=== PATIENT | female | born 1960 | race Caucasian/White ===

== ENCOUNTER 2017-01-04 15:23 | Emergency (ER) | payer MEDICARE, BC ==
[~2017-01-04] VITALS: Ht 160 cm; Wt 85.1 kg
[~2017-01-04 15:23] MED LIST: ALPR1TAB2 PO; ASPI-496 PO; DICL100G8 TP; FLUT16SP2 NS; LEVO125T PO; NITR0.4T8 SL; VITAMIN B12 SL; ZOLTAREN TP; [UNRECOGNIZED DRUG - OTHER] PO
[2017-01-04 15:38] VITALS: BP 117/73
== END 2017-01-04 16:34 | disposition home or self-care (01) ==
LOC: ED 16:29
DX: G89.11 Acute pain due to trauma (principal); M54.42 Lumbago with sciatica, left side; M54.41 Lumbago with sciatica, right side; M25.572 Pain in left ankle and joints of left foot; M25.571 Pain in right ankle and joints of right foot; Z88.0 Allergy status to penicillin; Z88.1 Allergy status to other antibiotic agents; Z88.2 Allergy status to sulfonamides
CPT/HCPCS: 99283